=== PATIENT | male | born 1970 | race Caucasian/White ===

== ENCOUNTER 2019-03-17 14:14 | Inpatient (IN) | payer OTHER ==
[~2019-03-17] VITALS: Ht 182.9 cm; Wt 81.2 kg
[~2019-03-17 14:14] MED LIST: DOXYCYCLINE 10100 MG PO; PREDNISONE 20 M20 M1 PO; TESSALON PERLE100 M1 PO; VENTOLIN HFA 1818 GM INH
[2019-03-17 14:15] VITALS: BP 101/58
[2019-03-17] MEDS ORDERED: LASIX 40 MG TAB40 M2 PO (14:27)
[2019-03-17] MEDS ORDERED: PROTONIX40 M1 PO (14:27)
[2019-03-17] MEDS ORDERED: SPIRONOLACTONE100 M1 PO (14:28)
[2019-03-17] MEDS ORDERED: CONSTULOSE10 GM/152 PO (14:28)
[2019-03-17] MEDS ORDERED: THIAMINE HCL500 MG PO (14:29)
[2019-03-17] MEDS ORDERED: KLOR-CON 1010 MEQ PO (14:29)
[2019-03-17] MEDS ORDERED: FOLIC ACID1 MG PO (14:29)
[2019-03-17] MEDS ORDERED: ONDANSETRON HCL4 M2 PO (14:30)
[2019-03-17] MEDS ORDERED: ZANTAC 150MG T150 MG PO (14:30)
[2019-03-17 14:54] LABS: HEMOGLOBIN 11.3 gm/dL (14.0-18.0); MCH 36.6 pg (26.0-34.0); MCHC 34.1 g/dL (28.0-37.0); MCV 107.3 fL (80.0-100.0); PLATELET COUNT 134 thou/uL (150-400); RBC 3.07 mil/uL (4.50-6.00); RDW 20.2 % (10.5-14.5)
[2019-03-17 14:55] LABS: URINE BLOOD NEGATIVE (Negative); URINE CLARITY CLEAR; URINE COLOR YELLOW; URINE GLUCOSE-RANDOM* NEGATIVE (Negative); URINE KETONES NEGATIVE (Negative); URINE LEUKOCYTES-REFLEX NEGATIVE (Negative); URINE NITRITE-REFLEX NEGATIVE (Negative); URINE PROTEIN (DIPSTICK) NEGATIVE (Negative)
[2019-03-17 14:57] LABS: ICTOTEST (BILI CONFIRMATORY) Negative (Negative); URINE BILIRUBIN NEGATIVE (Negative)
[2019-03-17 14:59] LABS: CALCIUM 7.7 mg/dL (8.5-10.1); CREATININE 1.1 mg/dL (0.7-1.3); POTASSIUM 3.6 mmol/L (3.5-5.1)
[2019-03-17 15:04] LABS: ALBUMIN 2.4 g/dL (3.4-5.0); TOTAL PROTEIN 5.7 g/dL (6.4-8.2)
[2019-03-17 15:04] LABS: AMP/METHAMP Negative (Negative); BARBITURATES Negative (Negative); BENZODIAZEPINES POSITIVE (Negative); COCAINE Negative (Negative); METHADONE Negative (Negative); OPIATES Negative (Negative); PCP Negative (Negative)
[2019-03-17 15:23] LABS: APTT 30.1 Seconds (24.5-32.8); INR 1.4; PROTIME 14.8 Seconds (9.3-11.4)
[2019-03-17 15:51] LABS: ANISOCYTOSIS 1+; MACROCYTES 1+
[2019-03-17 16:10] VITALS: BP 84/39
[2019-03-17 16:16] VITALS: BP 85/46
[2019-03-17 16:19] LABS: HEMATOCRIT 29.3 % (42.0-52.0); HEMOGLOBIN 10.3 gm/dL (14.0-18.0)
--- NOTE | 2019-03-17 16:33 | EKG ---
[address] [employer] [place] [address] ELECTROCARDIOGRAM REPORT Name: LINA MARTINEZ Room #: 361-P ADM IN M.R.#: [id number] Admission: 03/17/19 Attend Phys: La Che Discharge: Date of : 70 Report #: [id number] THIS REPORT FOR: //name// 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
--- NOTE | 2019-03-17 17:35 | NUR ---
PATIENT ADMIT TO UNIT AT 1630. C/O ABD PAIN 05/01. SIGNED AMA AT 1715 GO HOME.
== END 2019-03-17 17:35 | disposition home or self-care (01) | DRG 440 ==
LOC: ER 14:14 → EROBS 15:54 → 3W 16:17
PROVIDERS: Emergency Medicine; ADMIT Hospitalist
DX: K85.90 Acute pancreatitis without necrosis or infection, unspecified (principal); F17.210 Nicotine dependence, cigarettes, uncomplicated; Y90.9 Presence of alcohol in blood, level not specified; K74.60 Unspecified cirrhosis of liver; F10.229 Alcohol dependence with intoxication, unspecified; Z90.49 Acquired absence of other specified parts of digestive tract
CPT/HCPCS: 10879

== ENCOUNTER 2021-07-01 13:30 | Emergency (ER) | payer OTHER ==
[~2021-07-01] VITALS: Ht 185.4 cm; Wt 89.8 kg
[~2021-07-01 13:30] MED LIST changes: +CONSTULOSE10 GM/152 PO; +FOLIC ACID1 MG PO; +KLOR-CON 1010 MEQ PO; +LASIX 40 MG TAB40 M2 PO; +ONDANSETRON HCL4 M2 PO; +PROTONIX40 M1 PO; +SPIRONOLACTONE100 M1 PO; +THIAMINE HCL500 MG PO; +ZANTAC 150MG T150 MG PO
[2021-07-01 13:31] VITALS: BP 107/63
[2021-07-01 17:34] LABS: CALCIUM 8.3 mg/dL (8.5-10.1); CREATININE 1.2 mg/dL (0.7-1.3); POTASSIUM 4.9 mmol/L (3.5-5.1)
[2021-07-01 17:41] LABS: ALBUMIN 3.7 g/dL (3.4-5.0); TOTAL BILIRUBIN 1.5 mg/dL (0.2-1.0); TOTAL PROTEIN 5.8 g/dL (6.4-8.2)
[2021-07-01 18:41] LABS: HEMOGLOBIN 9.8 gm/dL (14.0-18.0); MCH 34.5 pg (26.0-34.0); MCHC 33.7 g/dL (28.0-37.0); MCV 102.3 fL (80.0-100.0); RBC 2.83 mil/uL (4.50-6.00); WBC 7.3 thou/uL (4.0-11.0)
[2021-07-01 19:22] LABS: URINE BILIRUBIN NEGATIVE (Negative); URINE BLOOD NEGATIVE (Negative); URINE CLARITY CLEAR; URINE COLOR YELLOW; URINE GLUCOSE-RANDOM* NEGATIVE (Negative); URINE KETONES NEGATIVE (Negative); URINE LEUKOCYTES-REFLEX NEGATIVE (Negative); URINE NITRITE-REFLEX NEGATIVE (Negative); URINE PROTEIN (DIPSTICK) NEGATIVE (Negative); URINE SPECIFIC GRAVITY 1.015 (1.005-1.035); URINE UROBILINOGEN 0.2 E.U./dl (0.2-1.0)
[2021-07-01 19:35] LABS: AMP/METHAMP Negative (Negative); BARBITURATES Negative (Negative); BENZODIAZEPINES POSITIVE (Negative); COCAINE Negative (Negative); METHADONE Negative (Negative); OPIATES Negative (Negative); PCP Negative (Negative)
== END 2021-07-01 19:58 | disposition left against medical advice (07) ==
LOC: ER 13:30
PROVIDERS: Emergency Medicine
DX: F10.129 Alcohol abuse with intoxication, unspecified (principal); Z20.822 Contact with and (suspected) exposure to COVID-19; R10.10 Upper abdominal pain, unspecified; E16.2 Hypoglycemia, unspecified; F17.210 Nicotine dependence, cigarettes, uncomplicated; F12.90 Cannabis use, unspecified, uncomplicated; Z90.49 Acquired absence of other specified parts of digestive tract; Z79.1 Long term (current) use of non-steroidal anti-inflammatories (NSAID); Z79.891 Long term (current) use of opiate analgesic; Z79.899 Other long term (current) drug therapy